=== PATIENT | male | born 1975 ===

== ENCOUNTER 2017-05-01 17:52 | Emergency (ER) | payer SELFPAY ==
[2017-05-01] MEDS ORDERED: SUCCINYLCHOLINE CHLORIDE 200 MG/10 ML VIAL IV ONE (18:00)
--- NOTE | 2017-05-01 18:25 | RAD ---
PROCEDURE: XR CHEST 1 VIEW HISTORY: intubate COMPARISON: None TECHNIQUE: Single projection of the chest was done. FINDINGS: The tip of the endotracheal tube is in the right mainstem bronchus. There are no discrete airspace infiltrates, pneumothoraces or pleural effusions. The pulmonary vascularity is normal. The cardiomediastinal silhouette is unremarkable for patient's age and sex. The findings and recommendations were discussed with Dr. Guy at 6:24 PM IMPRESSION: The tip of the endotracheal tube is in the right mainstem bronchus. The endotracheal tube can be retracted by 3 to 4 cm . Electronically signed by: Drew Ozuna MD 05/01/2017 6:24 PM [facility] Workstation: [id number]
[2017-05-01] MEDS ORDERED: ROCURONIUM BROMIDE 10 MG/ML VIAL ONE (18:30)
[2017-05-01 18:39] VITALS: O2SAT 100
[2017-05-01] MEDS ORDERED: ROCURONIUM BROMIDE 10 MG/ML VIAL IV ONE (18:40)
--- NOTE | 2017-05-01 18:43 | ED.PDOC ---
History of Present Illness - General Chief Complaint: Unresponsive Stated Complaint: Unresponsive Time Seen by Provider: 05/01/17 18:22 Source: EMS notes reviewed Exam Limitations: clinical condition, physical impairment - History of Present Illness Initial Comments: Murali Diaz 42 y/o male brought by ems unresponsive at home .Found Diazepam 2 mg brought by ems about 60 pills on the packet.Given narcan i dose did not respond.On familys arrival they stated he was doing well ate then passed out.So ems called up Timing/Duration: 1 hour Severity: severe Improving Factors: nothing Worsening Factors: nothing Associated Symptoms: other - unavailable Allergies/Adverse Reactions: Allergies UNOBTAINABLE Allergy (Verified 05/01/17 18:08) Home Medications: Ambulatory Orders Unobtainable [Unobtainable] 05/01/17 Review of Systems - Review of Systems Unable to Obtain Due To: condition, intubated, clinical condition Family Medical History - Family History Mother Family History: Unknown Physical Exam - Physical Exam General Appearance: Other - unresponsive Eye Exam: bilateral other - PERRL Ears, Nose, Throat: normal ENT inspection, normal pharynx Neck: supple Respiratory: lungs clear, normal breath sounds, other - breathing spontaneously [id number],bp.90 systolic Cardiovascular/Chest: normal peripheral pulses, regular rate, rhythm, no murmur Peripheral Pulses: radial,right: 2+, radial,left: 2+ Gastrointestinal/Abdominal: normal bowel sounds, soft, no organomegaly Back Exam: normal inspection Extremity: normal inspection, no pedal edema Neurologic: other - unresponsive Skin Exam: normal color, warm/dry Comments: Chandan coma scale-8 Progress - Progress Progress: 05/01/17 19:22 Last Vital Signs Temp 96.8 F L 05/01/17 17:52 Pulse 113 H 05/01/17 17:52 Resp 16 05/01/17 18:32 BP 124/67 05/01/17 17:52 Pulse Ox 100 05/01/17 18:32 05/01/17 20:25 Laboratory Tests 05/01/17 05/01/17 05/01/17 18:30 18:46 18:46 WBC 9.5 RBC 4.66 L Hgb 14.9 Hct 43.3 MCV 92.9 MCH 31.9 H MCHC 34.5 RDW 17.2 H Plt Count 237 MPV 7.2 L Absolute Neuts (auto) 5.80 Absolute Lymphs (auto) 2.90 Absolute Monos (auto) 0.60 Absolute Eos (auto) 0.10 Absolute Basos (auto) 0.10 Neutrophils % 61.2 Lymphocytes % 30.4 Monocytes % 6.4 Eosinophils % 1.4 Basophils % 0.6 D-Dimer, Quantitative < 230 pCO2 pO2 HCO3 ABG pH ABG O2 Saturation ABG Base Excess ABG Deoxyhemoglobin Oxyhemoglobin % Carboxyhemoglobin % Methemoglobin % Sat Calc Total Hemoglobin Sodium Potassium Chloride Carbon Dioxide Anion Gap BUN Creatinine BUN/Creatinine Ratio Random Glucose Serum Osmolality Calcium Magnesium 2.1 Total Bilirubin AST ALT Alkaline Phosphatase Troponin I Serum Total Protein Albumin Globulin Albumin/Globulin Ratio Urine Color Urine Appearance Urine pH Ur Specific [place] Urine Protein Urine Glucose (UA) Urine Ketones Urine Blood Urine Nitrite Urine Bilirubin Urine Urobilinogen Ur Leukocyte Esterase Urine RBC Urine WBC Ur Epithelial Cells Urine Bacteria Urine Mucus Salicylates Urine Opiates Screen Acetaminophen Urine Barbiturates Ur Phencyclidine Scrn U Amphetamin/Meth Scrn U Benzodiazepines Scrn U Cocaine Metab Screen U Cannabinoids Screen 05/01/17 05/01/17 05/01/17 18:46 18:46 18:46 WBC RBC Hgb Hct MCV MCH MCHC RDW Plt Count MPV Absolute Neuts (auto) Absolute Lymphs (auto) Absolute Monos (auto) Absolute Eos (auto) Absolute Basos (auto) Neutrophils % Lymphocytes % Monocytes % Eosinophils % Basophils % D-Dimer, Quantitative pCO2 pO2 HCO3 ABG pH ABG O2 Saturation ABG Base Excess ABG Deoxyhemoglobin Oxyhemoglobin % Carboxyhemoglobin % Methemoglobin % Sat Calc Total Hemoglobin Sodium 133 L Potassium 2.8 L Chloride 101 Carbon Dioxide 21 Anion Gap 13.8 BUN 9 Creatinine 0.64 BUN/Creatinine Ratio 14.1 Random Glucose 108 H Serum Osmolality 265.6 L Calcium 9.2 Magnesium Total Bilirubin 1.4 H AST 21 ALT 22 Alkaline Phosphatase 63 Troponin I < 0.02 Serum Total Protein 7.6 Albumin 4.6 Globulin 3.0 Albumin/Globulin Ratio 1.5 Urine Color Urine Appearance Urine pH Ur Specific [place] Urine Protein Urine Glucose (UA) Urine Ketones Urine Blood Urine Nitrite Urine Bilirubin Urine Urobilinogen Ur Leukocyte Esterase Urine RBC Urine WBC Ur Epithelial Cells Urine Bacteria Urine Mucus Salicylates < 4.0 Urine Opiates Screen Acetaminophen < 10.0 L Urine Barbiturates Ur Phencyclidine Scrn U Amphetamin/Meth Scrn U Benzodiazepines Scrn U Cocaine Metab Screen U Cannabinoids Screen 05/01/17 05/01/17 05/01/17 19:40 19:45 19:45 WBC RBC Hgb Hct MCV MCH MCHC RDW Plt Count MPV Absolute Neuts (auto) Absolute Lymphs (auto) Absolute Monos (auto) Absolute Eos (auto) Absolute Basos (auto) Neutrophils % Lymphocytes % Monocytes % Eosinophils % Basophils % D-Dimer, Quantitative pCO2 30 L pO2 184 H* HCO3 19.0 ABG pH 7.420 ABG O2 Saturation 100.2 H ABG Base Excess -3.8 ABG Deoxyhemoglobin -0.2 L Oxyhemoglobin % 98.5 H Carboxyhemoglobin % 0.5 Methemoglobin % Sat 1.2 Calc Total Hemoglobin 14.1 Sodium Potassium Chloride Carbon Dioxide Anion Gap BUN Creatinine BUN/Creatinine Ratio Random Glucose Serum Osmolality Calcium Magnesium Total Bilirubin AST ALT Alkaline Phosphatase Troponin I Serum Total Protein Albumin Globulin Albumin/Globulin Ratio Urine Color Yellow Urine Appearance Clear Urine pH 6.0 Ur Specific [place] 1.015 Urine Protein Negative Urine Glucose (UA) Negative Urine Ketones Negative Urine Blood Negative Urine Nitrite Negative Urine Bilirubin Negative Urine Urobilinogen 0.2 Ur Leukocyte Esterase Negative Urine RBC 0-1 Urine WBC 0-1 Ur Epithelial Cells 0 Urine Bacteria Rare Urine Mucus Trace Salicylates Urine Opiates Screen Negative Acetaminophen Urine Barbiturates Negative Ur Phencyclidine Scrn Negative U Amphetamin/Meth Scrn Negative U Benzodiazepines Scrn Positive H U Cocaine Metab Screen Negative U Cannabinoids Screen Negative - Results/Orders Results/Orders: Laboratory Tests 05/01/17 05/01/17 05/01/17 18:30 18:46 18:46 WBC 9.5 RBC 4.66 L Hgb 14.9 Hct 43.3 MCV 92.9 MCH 31.9 H MCHC 34.5 RDW 17.2 H Plt Count 237 MPV 7.2 L Absolute Neuts (auto) 5.80 Absolute Lymphs (auto) 2.90 Absolute Monos (auto) 0.60 Absolute Eos (auto) 0.10 Absolute Basos (auto) 0.10 Neutrophils % 61.2 Lymphocytes % 30.4 Monocytes % 6.4 Eosinophils % 1.4 Basophils % 0.6 D-Dimer, Quantitative < 230 pCO2 pO2 HCO3 ABG pH ABG O2 Saturation ABG Base Excess ABG Deoxyhemoglobin Oxyhemoglobin % Carboxyhemoglobin % Methemoglobin % Sat Calc Total Hemoglobin Sodium Potassium Chloride Carbon Dioxide Anion Gap BUN Creatinine BUN/Creatinine Ratio Random Glucose Serum Osmolality Calcium Magnesium 2.1 Total Bilirubin AST ALT Alkaline Phosphatase Troponin I Serum Total Protein Albumin Globulin Albumin/Globulin Ratio Urine Color Urine Appearance Urine pH Ur Specific [place] Urine Protein Urine Glucose (UA) Urine Ketones Urine Blood Urine Nitrite Urine Bilirubin Urine Urobilinogen Ur Leukocyte Esterase Urine RBC Urine WBC Ur Epithelial Cells Urine Bacteria Urine Mucus Salicylates Urine Opiates Screen Acetaminophen Urine Barbiturates Ur Phencyclidine Scrn U Amphetamin/Meth Scrn U Benzodiazepines Scrn U Cocaine Metab Screen U Cannabinoids Screen 05/01/17 05/01/17 05/01/17 18:46 18:46 18:46 WBC RBC Hgb Hct MCV MCH MCHC RDW Plt Count MPV Absolute Neuts (auto) Absolute Lymphs (auto) Absolute Monos (auto) Absolute Eos (auto) Absolute Basos (auto) Neutrophils % Lymphocytes % Monocytes % Eosinophils % Basophils % D-Dimer, Quantitative pCO2 pO2 HCO3 ABG pH ABG O2 Saturation ABG Base Excess ABG Deoxyhemoglobin Oxyhemoglobin % Carboxyhemoglobin % Methemoglobin % Sat Calc Total Hemoglobin Sodium 133 L Potassium 2.8 L Chloride 101 Carbon Dioxide 21 Anion Gap 13.8 BUN 9 Creatinine 0.64 BUN/Creatinine Ratio 14.1 Random Glucose 108 H Serum Osmolality 265.6 L Calcium 9.2 Magnesium Total Bilirubin 1.4 H AST 21 ALT 22 Alkaline Phosphatase 63 Troponin I < 0.02 Serum Total Protein 7.6 Albumin 4.6 Globulin 3.0 Albumin/Globulin Ratio 1.5 Urine Color Urine Appearance Urine pH Ur Specific [place] Urine Protein Urine Glucose (UA) Urine Ketones Urine Blood Urine Nitrite Urine Bilirubin Urine Urobilinogen Ur Leukocyte Esterase Urine RBC Urine WBC Ur Epithelial Cells Urine Bacteria Urine Mucus Salicylates < 4.0 Urine Opiates Screen Acetaminophen < 10.0 L Urine Barbiturates Ur Phencyclidine Scrn U Amphetamin/Meth Scrn U Benzodiazepines Scrn U Cocaine Metab Screen U Cannabinoids Screen 05/01/17 05/01/17 05/01/17 19:40 19:45 19:45 WBC RBC Hgb Hct MCV MCH MCHC RDW Plt Count MPV Absolute Neuts (auto) Absolute Lymphs (auto) Absolute Monos (auto) Absolute Eos (auto) Absolute Basos (auto) Neutrophils % Lymphocytes % Monocytes % Eosinophils % Basophils % D-Dimer, Quantitative pCO2 30 L pO2 184 H* HCO3 19.0 ABG pH 7.420 ABG O2 Saturation 100.2 H ABG Base Excess -3.8 ABG Deoxyhemoglobin -0.2 L Oxyhemoglobin % 98.5 H Carboxyhemoglobin % 0.5 Methemoglobin % Sat 1.2 Calc Total Hemoglobin 14.1 Sodium Potassium Chloride Carbon Dioxide Anion Gap BUN Creatinine BUN/Creatinine Ratio Random Glucose Serum Osmolality Calcium Magnesium Total Bilirubin AST ALT Alkaline Phosphatase Troponin I Serum Total Protein Albumin Globulin Albumin/Globulin Ratio Urine Color Yellow Urine Appearance Clear Urine pH 6.0 Ur Specific [place] 1.015 Urine Protein Negative Urine Glucose (UA) Negative Urine Ketones Negative Urine Blood Negative Urine Nitrite Negative Urine Bilirubin Negative Urine Urobilinogen 0.2 Ur Leukocyte Esterase Negative Urine RBC 0-1 Urine WBC 0-1 Ur Epithelial Cells 0 Urine Bacteria Rare Urine Mucus Trace Salicylates Urine Opiates Screen Negative Acetaminophen Urine Barbiturates Negative Ur Phencyclidine Scrn Negative U Amphetamin/Meth Scrn Negative U Benzodiazepines Scrn Positive H U Cocaine Metab Screen Negative U Cannabinoids Screen Negative - EKG/XRAY/CT XRAY: chest - no acute abnormalities ET in trachea CT Ordered: Yes - head no acute intracranial abnormality Procedures - Intubation Time of Intubation: 18:40 - unresponsive to painful stimulation Intubation Method: orotracheal Tube Size (cm): 8.0 Medications: Succinylcholine Breath Sounds after Intubation: equal Intubation Complications: no complications Post Intubation Xray: Yes Departure - Departure Clinical Impression: Unresponsive state, Hypokalemia Drug overdose Qualifiers: Encounter type: initial encounter Injury intent: undetermined intent Qualified Code(s): T50.904A - Poisoning by unspecified drugs, medicaments and biological substances, undetermined, initial encounter Time of Disposition: 20:58 Disposition: Transfer to Hospital Condition: Fair Departure Forms: Patient Portal Self Enrollment Home Medications: Ambulatory Orders Unobtainable [Unobtainable] 05/01/17 Transfer to Outside Facility - Transfer Information Accepting Provider:: Dr. Avni Hoyos Md[facility] Accepting Facility: [facility] Reason for Transfer: specialized care not available
--- NOTE | 2017-05-01 18:51 | RAD ---
EXAM: Chest,1 View CLINICAL INDICATION: 42-year-old male postintubation. TECHNIQUE: Single view, AP portable chest was obtained. COMPARISON: 05/01/2017. FINDINGS: Unremarkable cardiac and mediastinal silhouette. Heart size is normal. Lungs are clear without focal opacity, pneumothorax or pleural effusions. Interval retraction of endotracheal tube terminates approximately 2.6 cm above the level of the fatemeh. The visualized bones are within normal limits. IMPRESSION: 1. No acute cardiopulmonary abnormalities. 2. Interval retraction of endotracheal tube terminating 2.6 cm above the level of the fatemeh. Electronically signed by: Pat Squires MD 05/01/2017 6:49 PM [facility] Workstation: [id number]
[2017-05-01] MEDS ORDERED: LACTATED RINGERS 1,000 ML IVS ONE (19:13)
[2017-05-01] MEDS ORDERED: VECURONIUM BROMIDE 10 MG VIAL IV ONE (19:23)
--- NOTE | 2017-05-01 19:45 | CT ---
PROCEDURE: Head CLINICAL HISTORY: 42 years Male unresponsive COMPARISON: None. TECHNIQUE: Contiguous axial CT images obtained through the brain without IV contrast. This exam was performed according to our department optimization program which includes automated exposure control, adjustment of the mA and/or kv according to patient size and/or use of iterative reconstruction technique. FINDINGS: The ventricles and sulci are within normal limits for the patient's age. No midline shift or mass effect. No masses identified. No acute intracranial hemorrhage. Mucosal thickening in scattered paranasal sinuses. No depressed calvarial fractures. IMPRESSION: No acute intracranial abnormality is identified. Electronically signed by: Dorothy Tracy 05/01/2017 7:43 PM INFORMATION DIRECTOR
[2017-05-01] MEDS ORDERED: KCL 40MEQ/NS 1,000 ML IVS PRN (20:27)
[2017-05-01 21:13] VITALS: BP 141/93; TEMP 97.1
[2017-05-01] MEDS ORDERED: MIDAZOLAM INJ 5 MG/5 ML VIAL ONE (21:22)
[2017-05-01] MEDS ORDERED: MIDAZOLAM INJ 5 MG/5 ML VIAL IV ONE (21:24)
== END 2017-05-01 21:46 | disposition short-term general hospital (02) ==
LOC: ER 17:52
DX: T50.904A Poisoning by unspecified drugs, medicaments and biological substances, undetermined, initial encounter (principal); E87.6 Hypokalemia; R55 Syncope and collapse; Y92.009 Unspecified place in unspecified non-institutional (private) residence as the place of occurrence of the external cause
CPT/HCPCS: 31500; 36415; 36600; 70450; 71010; 80053; 80307; 80320; 80329; 81001; 82803; 82805; 83735; 84484; 85025; 85379; 93005; 94002; 94770; J2060; J2250; J3480

== ENCOUNTER 2018-09-17 22:31 | Emergency (ER) | payer SELFPAY ==
[2018-09-17] MEDS ORDERED: diphenhydrAMINE HCL 50 MG/ML VIAL ONE (22:33)
[2018-09-17] MEDS ORDERED: diphenhydrAMINE HCL 50 MG/ML VIAL IM ONE (22:43)
--- NOTE | 2018-09-17 23:17 | ED.PDOC ---
History of Present Illness - General Chief Complaint: General Stated Complaint: lock jaw Time Seen by Provider: 09/17/18 23:12 Source: patient Exam Limitations: no limitations - History of Present Illness Initial Comments: Murali Diaz 43 y/o male brought by family to ER after he was unable to open mouth fully tonight.Denies any injury but had been taking Olanzapine for his d epression which was prescribed in [place].Stated has problem with family and got depressed unable to sleep.Denies suicidal thoughts or harm to others.Had also history of chronic alcoholism. from family but lives with parents here in [place] has good family support.He used to work with [employer] in [place]. Timing/Duration: 1-3 hours Severity: moderate Improving Factors: nothing Worsening Factors: nothing Associated Symptoms: denies symptoms Allergies/Adverse Reactions: Allergies UNOBTAINABLE Allergy (Verified 05/01/17 18:08) Home Medications: Ambulatory Orders Olanzapine 20 mg BEDTIME 09/17/18 Review of Systems - Review of Systems Constitutional: States: no symptoms reported EENTM: States: no symptoms reported Respiratory: States: no symptoms reported Cardiology: States: no symptoms reported Gastrointestinal/Abdominal: States: no symptoms reported Genitourinary: States: no symptoms reported Musculoskeletal: States: no symptoms reported Skin: States: no symptoms reported Neurological: States: emotional problems Endocrine: States: see HPI Past Medical History (General) - Patient Medical History Hx Stroke: No Hx Congestive Heart Failure: No Hx Diabetes: No Surgical History: no surgical history - Vaccination History Hx Influenza Vaccination: - unknown Hx Pneumococcal Vaccination: - unknown - Social History Hx Alcohol Use: Yes Family Medical History - Family History Mother Family History: Unknown Living Status: Still Living Physical Exam - Physical Exam General Appearance: Alert, Comfortable, No apparent distress Eye Exam: bilateral normal Ears, Nose, Throat: hearing grossly normal, normal ENT inspection, other - difficulty opening mouth with jaw muscle tightness Neck: supple, normal inspection Respiratory: lungs clear, normal breath sounds Cardiovascular/Chest: normal peripheral pulses, regular rate, rhythm Gastrointestinal/Abdominal: normal bowel sounds, non tender, soft Back Exam: no CVA tenderness, no vertebral tenderness Extremity: no pedal edema, no calf tenderness Neurologic: alert, oriented x 3, other - stated has family problems Skin Exam: normal color, warm/dry Lymphatic: no adenopathy Progress - Progress Progress: 09/17/18 23:18 Vital Signs - 8 hr 09/17/18 22:31 Temperature 98.2 F Pulse Rate [ 103 H Right Brachial] Respiratory 22 Rate Blood Pressure 116/114 [Left Arm] O2 Sat by Pulse 100 Oximetry - Results/Orders Results/Orders: [place] better afte he was given Benadryl 50 mg im and lorazepam 1 mg im;Prescribed Chlordiazepoxide and Baclofen for his alcoholism Departure - Departure Clinical Impression: Acute neuroleptic-induced dystonia, Situational depression, Alcoholism, chronic Time of Disposition: 23:22 Disposition: Discharge to Home or Self Care Condition: Fair Departure Forms: ED Discharge - Pt. Copy, Patient Portal Self Enrollment Instructions: Depression, Dystonia, Medicines for Depression, When You Have Depression and Another Health Problem, Alcohol Abuse and Alcoholism (DC), Alcohol Use - When Is Drinking a Problem? Home Medications: Ambulatory Orders Olanzapine 20 mg BEDTIME 09/17/18 Additional Instructions: NEED TO STOP TAKING OLANZAPINE;May take over the counter Melatonin-5 mg -1-2 tablet at bedtime and Doxylamine -25 one tablet at bedtime;Return to ER as nee ded;May follow up at [facility] [phone] for further evaluation of depression symptoms
[2018-09-18 00:03] VITALS: BP 145/95; TEMP 98.3; O2SAT 96
== END 2018-09-18 | disposition home or self-care (01) ==
LOC: ER 22:31
DX: G24.02 Drug induced acute dystonia (principal); T43.595A Adverse effect of other antipsychotics and neuroleptics, initial encounter; F32.9 Major depressive disorder, single episode, unspecified; F10.20 Alcohol dependence, uncomplicated
CPT/HCPCS: J1200; J2060